=== PATIENT | female | born 1980 | race Caucasian/White ===

== ENCOUNTER 2016-12-25 14:16 | Emergency (ER) | payer OTHER ==
[2016-12-25] MEDS ORDERED: ONDANSETRON 4 MG/2 ML VIAL IVP ONE (15:35)
[2016-12-25] MEDS ORDERED: NS 1,000 ML IV ONE (15:35)
--- NOTE | 2016-12-25 16:02 | EDPHY ---
H & P Stated Complaint: Ongoing abd pain eval@2 different EDs;sched for MRI tomorrow, wants today Time Seen by Provider: 12/25/16 15:28 HPI/ROS: This is a 36-year-old female presenting to the emergency department complaining of right lower quadrant pain. Patient states she has had this pain onset 3 weeks ago, initially seen at [facility] CT scan was negative for any mass but positive for a ruptured ovarian cyst, and fistulas. Patient was seen by [facility]ology of [facility], concern for right lower quadrant mass or obstruction, also patient had new complaints of fever and nausea vomiting. Patient states she does have a history of Crohn's disease. Not share a fall this pain is due to the ovarian rupture or Crohn's disease. Patient is reporting a 10/10 pain unable to control pain at home. REVIEW OF SYSTEMS: Constitutional: Fever chills, positive decrease in appetite Eyes: No vision changes ENT: No sore throat Respiratory: No cough or shortness of breath Cardiac: No chest pain Gastrointestinal: Right lower quadrant pain with nausea vomiting Genitourinary: No painful urination Musculoskeletal: Intermittent lower back pain which is chronic Skin: No rash Neurological: No headache or dizziness Source: Patient - Personal History LMP (Females 10-55): 22-28 Days Ago Current Tetanus Diphtheria and Acellular Pertussis (TDAP): Yes - Medical/Surgical History Other PMH: Ovarian cyst. crohns. kidney stones - Social History Smoking Status: Current every day smoker - Physical Exam Exam: CONSTITUTIONAL: patient appeared well nourished, non-ill appearing and normally developed. No acute distress. Appears uncomfortable. Vital signs as documented. HEENT: Normocephalic atraumatic NECK: Supple,FROM without pain RESP: Non-labored resp effort, airway patent, CTAB CARDIAC: RRR w/o murmur, carmen. Normal S1/S2 GI: Abd soft, tenderness to right lower quadrant no rebound tenderness, left lower quadrant tenderness on palpate NEURO: AAOx3 ambulatory without gait disturbance EXTREMITIES: FROM without pain or difficulty. SKIN: Warm and dry no rash PSYCH: Normal affect, calm, no distress, acting appropriate Constitutional: Initial Vital Signs Temperature (C) 36.7 C 12/25/16 14:20 Heart Rate 98 12/25/16 14:20 Respiratory Rate 18 12/25/16 14:20 Blood Pressure 131/89 H 12/25/16 14:20 O2 Sat (%) 96 12/25/16 14:20 O2 Delivery Mode Room Air Allergies/Adverse Reactions: No Known Allergies Allergy (Unverified 12/25/16 14:20) Home Medications: Medication Instructions Recorded Azothorpine 12/25/16 Hydrocodone/Acetaminophen [Vicodin 1 each PO 12/25/16 5-300 mg Tablet] Hydrocodone/Acetaminophen [Vicodin 1 each PO Q4 #15 tablet 12/25/16 5-300 mg Tablet] Ondansetron Odt [Zofran Odt 4 mg 4 mg PO Q4 #20 tab 12/25/16 (*)] Ondansetron [Ondansetron Odt] 8 mg PO ONCE 12/25/16 Ustekinumab [Stelara] 130 mg IV 12/25/16 predniSONE [Prednisone] 5 mg PO 12/25/16 Medical Decision Making - Diagnostics Imaging: Imaging Impressions Abdomen CT 12/25/16 15:53 Impression: 1. Acute ileitis (active Crohn's disease) with 2 fistulae. One fistula communicates between the terminal ileum to the ascending colon and the second fistula is please review blind dated as a 2.2 cm gas and fluid collection in the right abdominal wall musculature. 2. No mechanical obstruction, free fluid, or intraperitoneal abscess. 3. No nephrolithiasis or hydroureteronephrosis. 4. Minimal enteropathic sacroiliitis. Findings discussed with Emergency Department, Keiko Galindo NP, on 12/25/2016 at 1724 hours. ED Course/Re-evaluation: Discussed plan of care: CBC, Chem 7, test, CT with IV contrast 1550: Spoke with GI gastroenterology of [facility] Jayla STOUT they had initial CT scan done 3 weeks ago, but is now concerned of a mass the right lower quadrant requesting a CT with IV contrast 1800: Spoke with Dr. Garvey with gastroenterology of the [facility] discussed CT findings, recommends follow-up with GI tomorrow. 1805: Spoke with patient patient was fine with going home on pain control and following up with GI tomorrow. Patient agreed with this plan of care, discharge home with pain medicine and nausea medicine-->, stable discussed all discharge instructions with patient. Differential Diagnosis: Differential differential diagnosis considered but not limited to small bowel obstruction, perforated bowel and mass - Data Points Laboratory Results: Laboratory Results 12/25/16 16:09 12/25/16 16:09 12/25/16 12/25/16 12/25/16 16:09 16:09 16:09 WBC 13.32 10^3/uL H 10^3/uL (3.80-9.50) RBC 5.28 10^6/uL 10^6/uL (4.18-5.33) Hgb 15.4 g/dL g/dL (12.6-16.3) Hct 45.0 % % (38.0-47.0) MCV 85.2 fL fL (81.5-99.8) MCH 29.2 pg pg (27.9-34.1) MCHC 34.2 g/dL g/dL (32.4-36.7) RDW 13.7 % % (11.5-15.2) Plt Count 523 10^3/uL H 10^3/uL (150-400) MPV 10.0 fL fL (8.7-11.7) Neut % (Auto) 79.8 % H % (39.3-74.2) Lymph % (Auto) 10.8 % L % (15.0-45.0) Rice % (Auto) 7.9 % % (4.5-13.0) Eos % (Auto) 0.3 % L % (0.6-7.6) Baso % (Auto) 0.7 % % (0.3-1.7) Nucleat RBC Rel Count 0.0 % % (0.0-0.2) Absolute Neuts (auto) 10.63 10^3/uL H 10^3/uL (1.70-6.50) Absolute Lymphs (auto) 1.44 10^3/uL 10^3/uL (1.00-3.00) Absolute Monos (auto) 1.05 10^3/uL H 10^3/uL (0.30-0.80) Absolute Eos (auto) 0.04 10^3/uL 10^3/uL (0.03-0.40) Absolute Basos (auto) 0.09 10^3/uL 10^3/uL (0.02-0.10) Absolute Nucleated RBC 0.00 10^3/uL 10^3/uL (0-0.01) Immature Gran % 0.5 % % (0.0-1.1) Immature Gran # 0.07 10^3/uL 10^3/uL (0.00-0.10) Sodium 139 mEq/L mEq/L (134-144) Potassium 5.1 mEq/L mEq/L (3.5-5.2) Chloride 104 mEq/L mEq/L (97-110) Carbon Dioxide 17 mEq/l L mEq/l (22-31) Anion Gap 18 mEq/L H mEq/L (8-16) BUN 20 mg/dL mg/dL (7-23) Creatinine 1.1 mg/dL H mg/dL (0.6-1.0) Estimated GFR 56 Glucose 77 mg/dL mg/dL (70-100) Calcium 10.3 mg/dL mg/dL (8.5-10.4) Beta HCG, Qual NEGATIVE Medications Given: Discontinued Medications Hydromorphone HCl (Dilaudid) 1 mg IVP EDNOW ONE Stop: 12/25/16 16:35 Last Admin: 12/25/16 16:38 Dose: 1 mg Hydromorphone HCl (Dilaudid) 1 mg IVP EDNOW ONE Stop: 12/25/16 18:08 Last Admin: 12/25/16 18:45 Dose: 1 mg Sodium Chloride (Ns) 1,000 mls @ 0 mls/hr IV EDNOW ONE PRN Reason: Wide Open Stop: 12/25/16 15:36 Last Admin: 12/25/16 16:08 Dose: 1,000 mls Morphine Sulfate (Morphine) 2 mg IVP EDNOW ONE Stop: 12/25/16 15:46 Last Admin: 12/25/16 16:20 Dose: 2 mg Ondansetron HCl (Zofran) 4 mg IVP EDNOW ONE Stop: 12/25/16 15:36 Last Admin: 12/25/16 16:08 Dose: 4 mg Departure - Departure Disposition: Other Psych, Not Roberto Clinical Impression: Crohn's disease (regional enteritis) Qualifiers: Gastrointestinal tract location: unspecified location Digestive disease complication type: with fistula Qualified Code(s): K50.913 - Crohn's disease, unspecified, with fistula Abdominal pain Qualifiers: Abdominal location: right lower quadrant Qualified Code(s): R10.31 - Right lower quadrant pain Condition: Good Instructions: Crohn Disease (ED) Additional Instructions: 1. Follow up with G[facility]enterology of the [facility] tomorrow 2. Take pain medication nausea medication as needed 3. If at any point time symptoms worsen become life-threatening high fevers vomiting blood unable to tolerate any p.o. intake return to the emergency department Referrals: NONE *PRIMARY CARE P,. [Primary Care Provider] - As per Instructions [facility] [Edm Groups for Call Sched] - As per Instructions Prescriptions: Hydrocodone/Acetaminophen [Vicodin 5-300 mg Tablet] 1 each PO Q4 #15 tablet Ondansetron Odt [Zofran Odt 4 mg (*)] 4 mg PO Q4 #20 tab
[2016-12-25 16:13] LABS: % IMMATURE GRANULYOCYTES 0.5 % (0.0-1.1); ABSOLUTE IMMATURE GRANULOCYTES 0.07 10^3/uL (0.00-0.10); ADD DIFF? NO; ADD MORPH? NO; ADD SCAN? NO; ATYPICAL LYMPHOCYTE FLAG 10 (0-99); FRAGMENT RBC FLAG 0 (0-99); HEMOGLOBIN 15.4 g/dL (12.6-16.3); LEFT SHIFT FLG 10 (0-99); LIPEMIA HEMOLYSIS FLAG 90 (0-99); MEAN CELL HEMOGLOBIN 29.2 pg (27.9-34.1); MEAN CELL HEMOGLOBIN CONCENTR. 34.2 g/dL (32.4-36.7); MEAN CELL VOLUME 85.2 fL (81.5-99.8); PLATELET CLUMPS FLAG 10 (0-99); PLATELET COUNT 523 10^3/uL (150-400); RED BLOOD CELL COUNT 5.28 10^6/uL (4.18-5.33); RED CELL DISTRIBUTION WIDTH 13.7 % (11.5-15.2)
[2016-12-25] MEDS ORDERED: HYDROmorphONE/DILAUDID 1 MG/ML SYR IVP ONE ×2 (16:34→18:07)
[2016-12-25] MEDS ORDERED: HYDROmorphONE/DILAUDID 1 MG/ML SYR ONE (16:35)
[2016-12-25 16:39] LABS: ANION GAP 18 mEq/L (8-16); CALCIUM 10.3 mg/dL (8.5-10.4); CARBON DIOXIDE 17 mEq/l (22-31); CHLORIDE 104 mEq/L (97-110); CREATININE 1.1 mg/dL (0.6-1.0); GLOMERULAR FILTRATION RATE 56; GLUCOSE 77 mg/dL (70-100); POTASSIUM 5.1 mEq/L (3.5-5.2); SODIUM 139 mEq/L (134-144)
[2016-12-25] MEDS ORDERED: IOPAMIDOL (ISOVUE-300) 100 ML BTL IV ONE (16:42)
[2016-12-25 18:58] VITALS: BP 122/78; PULSE 79; RESP 17; TEMP 99.5; O2SAT 95
== END 2016-12-25 18:56 ==
DX: K50.913 Crohn's disease, unspecified, with fistula (principal); F17.200 Nicotine dependence, unspecified, uncomplicated
CPT/HCPCS: 96374; J1170; J2405; Q9967